=== PATIENT | male | born 1960 | race Caucasian/White ===

== ENCOUNTER 2017-04-06 17:35 | Inpatient (IN) | payer SELFPAY ==
[2017-04-06] MEDS ORDERED: NS 1,000 ML IV SCH (19:30)
[2017-04-06] MEDS ORDERED: ONDANSETRON 4 MG/2 ML VIAL IVP PRN (21:03)
--- NOTE | 2017-04-06 21:31 | GHP ---
[f rep st] HISTORY AND PHYSICAL DATE OF ADMISSION: 04/06/2017 CHIEF COMPLAINT: Jaundice. HISTORY OF PRESENT ILLNESS: The patient is a pleasant 56-year-old gentleman, with no major past medi kezia history other than testicular cancer diagnosed in the , who presented to medical attention a fter noting dark urine and abiodun-colored stools. Blood work done by his primary care provider, Dr. Hima Marquis, revealed an elevated bilirubin at 13, which was mostly conjugated. This led to right upper quadrant ultrasound, which showed marked dilatation of the intra and extrahepatic biliary duct al system with the common bile duct measuring 21 mm. There was also echogenic shadowing filling defe cts within the visualized portions of the common bile duct, consistent with choledocholithiasis. The patient has been afebrile. His white blood cell count is normal. He is not having severe pain or f eleni. There was no gallbladder wall thickening either. I reviewed the case with Dr. Dickey and shailesh garcía plan is for ERCP tomorrow morning to address the choledocholithiasis. PAST MEDICAL HISTORY: Testicular cancer, status post chemotherapy and lymph node dissection in his a bdomen and pelvis. PAST SURGICAL HISTORY: Removal of left testicle. MEDICATIONS: None. ALLERGIES: None. FAMILY HISTORY: Dad is . He from lung cancer. Mother is currently living and lives in [place]. SOCIAL HISTORY: Patient is single. No children. He is a nonsmoker. He is a software engineering associate manager. REVIEW OF SYSTEMS: CONSTITUTIONAL: No complaints of any fevers or chills. ENT: No recent upper re spiratory illnesses. CARDIOVASCULAR: No complaints of any chest pain, palpitations, or syncopal epi sodes. RESPIRATORY: No complaints of shortness of breath or productive cough. GI: He notes some ab dominal discomfort over the past months with eating, but no nausea or vomiting associated. He has mendoza d some loose stools and had abiodun-colored stools over the past 4-6 weeks. No bloody stools. : No report of any difficulty with urination. He has noted dark urine over the past 4-6 weeks as well. N EUROLOGIC: No complaints of headaches or focal weakness. HEMATOLOGIC: No history of any deep vein thrombosis or pulmonary embolism. PSYCHIATRIC: No history of anxiety or depression. ENDOCRINE: No history of diabetes or thyroid abnormalities. SKIN: Positive for jaundiced appearing over the past weeks. MUSCULOSKELETAL: No focal joint pain. PHYSICAL EXAM: VITAL SIGNS: Temperature 37.1, blood pressure 142/75, heart rate 66, respirations 16 , saturating 96% on room air. GENERAL: Patient appears comfortable. He is awake, alert, conversant , able to provide a good history. HEENT: Extraocular movements intact. Positive for scleral icteru s. Mucous membranes moist. NECK: Supple. No adenopathy. No thyroid enlargement noted. CHEST: C lear. Normal respiratory effort. HEART: Regular rate and rhythm. No murmurs. ABDOMEN: Midline s car from prior surgery. Nondistended, nontender. No right upper quadrant discomfort noted. Normal bowel sounds. : No Valles catheter in place. EXTREMITIES: No significant pitting edema. NEUROLO GIC: Cranial nerves 2-12 appear intact. Strength 5/5 in all extremities. LABORATORY DATA: White blood cell count 5, hemoglobin 15, platelets 186. Sodium 143, potassium 4.0, chloride 108, bicarb 20, BUN 18, creatinine 0.9, glucose 95. AST 62, ALT 97, alkaline phosphatase 3 40. Bilirubin total 13, conjugated bilirubin 11, unconjugated bilirubin 2. Hepatitis A, B, and C te sting negative. IMAGING: Ultrasound as detailed in the HPI. ASSESSMENT AND PLAN: 1. Choledocholithiasis. Dr. Dickey has been consulted and tentative plan is for ERCP tomorrow morning . There are no signs or symptoms to suggest cholangitis at this point in time. Monitor closely and if so, initiate empiric antibiotic therapy. Otherwise, we will plan on repeat labs in the morning. Patient will remain n.p.o. Overnight. 2. Deep vein thrombosis prophylaxis. We will hold Lovenox for now in anticipation of ERCP. Patient is low risk as he is ambulatory. 3. Disposition. I will admit him under inpatient as I anticipate him being here over 2 midnights, p robably 3-4 days. /[id number]/MODL
--- NOTE | 2017-04-06 21:45 | PDMN ---
Medical Necessity Medical necessity: C/M review: Patient meets INPT criteria under [facility] [place]\ M-[id number] Gallbladder or bile duct inflammation or stone: Acute and persistent choledocholithiasis,marked dilatation of the intra and extra hepatic biliary ductal system with the common bile duct measuring 21 mm, echogenic shadowing filling defects within the visualized portions of the common bile duct concictent with choledocholithiasis, jaundice, abiodun colored stools, bilirubin 13 requiring planned GI consult, 04/07/2017 ERCP, ongoing NPO, IV fluids, IV Morphine and IV Zofran as needed, comorbid history of testicular cancer S/P chemotherapy and lymph node dissection in the abdomen and pelvis. MD anticipates > 2 MN LOS for ongoing med nec for eval and TX of above.
[2017-04-06 22:50] LABS: PLATELET COUNT 155 10^3/uL (150-400)
[2017-04-06 22:59] LABS: INR 1.07 (0.83-1.16); PROTIME(PATIENT) 14.1 SEC (12.0-15.0)
[2017-04-07 05:11] LABS: PLATELET COUNT 144 10^3/uL (150-400)
[2017-04-07 05:20] LABS: INR 1.03 (0.83-1.16); PROTIME(PATIENT) 13.7 SEC (12.0-15.0)
--- NOTE | 2017-04-07 10:28 | ASMTCASEMG ---
Living Arrangements What is your living Answers: Alone arrangement? Who do you live with? Discharge Plan Comments Coordination Status Comments Notes: Pt admitted for suspected choledocholithiasis; scheduled for an ERCP today. Only significant history includes testicular cancer in the w/ chemo and lymph node dissection. Per H&P, pt is single, lives alone and has no children. 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 Spoke w/ Mandy Morales NP. Per Mandy, pt will likely discharge home independently when medically stable. CM will cont to follow for any potential needs or concerns. Current Discharge Plan: Home independently Date Signed: 04/07/2017 10:27 AM Electronically Signed By:Brooke Jimenez RN
--- NOTE | 2017-04-07 10:57 | HOSPPROG ---
Hospitalist Progress Note Assessment/Plan: 56y male with jaundice and elevated labs. First encounter, chart reviewed. #Choledocholithiasis -ERCP today #Pain -none #Routine -educated about colonoscopy #Dispo -cont hospital course -likely DC in am if feeling better and no complications. Subjective: No pain. Anxious for procedure. Objective: Vital Signs Temp Pulse Resp BP Pulse Ox 36.7 C 53 L 16 109/64 97 04/07/17 07:25 04/07/17 07:25 04/07/17 07:25 04/07/17 07:25 04/07/17 07:25 Laboratory Results 04/07/17 05:00 04/07/17 05:00 PT 13.7 SEC (12.0-15.0) 04/07/17 05:00 INR 1.03 (0.83-1.16) 04/07/17 05:00 - Physical Exam Constitutional: no apparent distress, appears nourished, not in pain Eyes: PERRL, EOMI, icteric sclera Ears, Nose, Mouth, Throat: moist mucous membranes, hearing normal, ears appear normal Cardiovascular: No JVD, No tachycardia, No edema Respiratory: no respiratory distress, no rales or rhonchi, reduced air movement Gastrointestinal: normoactive bowel sounds, tenderness, No ascites Skin: warm, normal color, No mottled Musculoskeletal: full muscle strength, normal joint ROM, no joint effusions Neurologic: AAOx3 Psychiatric: interacting appropriately, not encephalopathic, thought process linear, anxious ICD10 Worksheet Patient Problems: Problems Problem Status Onset Choledocholithiasis Acute - ICD10 Problem Qualifiers (1) Choledocholithiasis
[2017-04-07] MEDS ORDERED: GLUCAGON HCL 1 MG VIAL ONE (13:03)
[2017-04-07] MEDS ORDERED: IOTHALAMATE MEG (CONRAY) 50 ML VIAL IV ONE (13:31)
--- NOTE | 2017-04-07 14:21 | PDANEPAE ---
ANE History of Present Illness 56 yo for ercp ANE Past Medical History - Pulmonary History Hx Oxygen in Use at Home: No Hx Sleep Apnea: No Sleep Apnea Screening Result - Last Documented: Negative - Endocrine History Hx Diabetes: No - Chronic Pain History Chronic Pain: No ANE Review of Systems Review of Systems: - Exercise capacity METS (RN): 4 METS ANE Patient History - Allergies Allergies/Adverse Reactions: No Known Allergies Allergy (Unverified 04/06/17 20:11) - Home Medications Home medications: home medication list seen and reviewed Home Medications: NK [No Known Home Meds] 04/06/17 [Last Taken Unknown] - NPO status NPO Status: no food or drink >8 hours NPO Since - Liquids (Date): 04/07/17 NPO Since - Liquids (Time): 00:00 NPO Since - Solids (Date): 04/07/17 NPO Since - Solids (Time): 00:00 - Anes Hx Anes Hx: post operative nausea - Smoking Hx Smoking Status: Never smoked ANE Labs/Vital Signs - Labs Result Diagrams: 04/07/17 05:00 04/07/17 05:00 - Vital Signs Blood Pressure: 124/71 Heart Rate: 56 Respiratory Rate: 16 O2 Sat (%): 97 Height: 5 ft 8 in Weight: 79.5 kg ANE Physical Exam - Airway Mallampati Score: Class 2 Mouth exam: normal dental/mouth exam - Pulmonary Pulmonary: no respiratory distress - Cardiovascular Cardiovascular: regular rate and rhythym - ASA Status ASA Status: II ANE Anesthesia Plan Anesthesia Plan: general endotracheal anesthesia
[2017-04-07] MEDS ORDERED: REMIFENTANIL HCL 1 MG VIAL ONE (14:35)
[2017-04-07] MEDS ORDERED: fentaNYL 100 MCG/2 ML INJ ONE (14:35)
[2017-04-07] MEDS ORDERED: PROPOFOL/EMULSION 500 MG/50 ML BOTTLE IV ONE (14:35)
[2017-04-07] MEDS ORDERED: INDOMETHACIN 50 MG SUPP PR ONE ×2 (14:41→14:55)
[2017-04-07] MEDS ORDERED: NALOXONE HCL 0.4 MG/ML INJ IVP PRN (16:02)
[2017-04-07] MEDS ORDERED: fentaNYL 100 MCG/2 ML INJ IVP PRN (16:02)
[2017-04-07] MEDS ORDERED: ONDANSETRON 4 MG/2 ML VIAL IVP PRN (16:02)
--- NOTE | 2017-04-07 16:03 | POSTANESTH ---
Post Anesthetic Evaluation Cardiovascular Status: Normal, Stable Respiratory Status: Normal, Stable Level of Consciousness/Mental Status: Can Participate in Eval Pain Control: Adequate, Prn Tx Ordered Nausea/Vomiting Control: Adequate, Prn Tx Ordered Complications Possibly Related to Anesthesia: None Noted
[2017-04-07 16:51] VITALS: RESP 16
[2017-04-07 20:13] VITALS: TEMP 97.9; O2SAT 96
--- NOTE | 2017-04-07 22:14 | GIREPORT ---
[facility] - Endoscopy Department Patient Name: Kishor Ruiz Procedure Date: 04/07/2017 1:28 PM Patient Type: Inpatient Attending MD/ ER Physician: Mu Dickey MD Procedure: ERCP Indications: Abdominal pain of suspected biliary origin, Biliary dilation on Ultraso und, Bile duct stone on Ultrasound, Jaundice, Elevated alkaline phosphatase Patient Profile: 56 year old male presents for biliary decompression. Providers: Mu Dickey MD Medicines: Indomethacin 100 mg [place], General Anesthesia Complications: No immediate complications. Estimated blood loss: Minimal. Description of Procedure: After obtaining informed consent, the scope was passed under direct vis ion. Throughout the procedure, the patient's blood pressure, pulse, and oxyg en saturations were monitored continuously. The was introduced through the mouth, and advanced to the duodenum and used to inject contrast into th e bile duct. The ERCP was accomplished without difficulty. The patient tolerated the procedure well. Findings: The icing machine operator film was normal. The esophagus was successfully intubated und er direct vision. The scope was advanced to the major papilla in the desce nding duodenum without detailed examination of the pharynx, larynx and associ ated structures, and upper GI tract. The ampulla was bulging. The upper GI t ract was grossly normal. A wire was passed into the biliary tree. The short- nosed traction sphincterotome was passed over the guidewire and the bile duct was then deeply cannulated. No pancreatic duct manipulation or injection wa s performed. Contrast was injected. I personally interpreted the bile deepak t images. Ductal flow of contrast was adequate. Image quality was subopti mal due to signiciant dilation of the CBD. The CBD was dilated to at least 2cms and even with occlusion cholangiogram the duct was hard to visualize du e to the dilation of the CBD. Contrast extended to the entire biliary tree. The lower third of the main bile duct contained five stones, the largest of which was 15 mm in diameter. A 15 mm biliary sphincterotomy was made wi th a traction (standard) sphincterotome using pure cut current. The sphincterotomy oozed blood. Balloon sweeps was attempted but the stones could not be extracted. Dilation of the common bile duct with a 12-13.5 -15 mm balloon (to a maximum balloon size of 15 mm) dilator was successful. The biliary tree was swept with a 15 mm balloon starting at the bifurcation . Many stones were removed. However, despite multiple balloon sweeps significant debris and stones were still being extracted. Due to this, a 10 mm by 6 cm covered metal stent was placed into the common bile duct. Bi le flowed through the stent. The stent was in good position. Estimated Blood Loss: Estimated blood loss was minimal. Post Op Diagnosis: - Choledocholithiasis was found. - A biliary sphincterotomy was performed. - Common bile duct was successfully dilated. - The biliary tree was swept with stone extraction and debris despite multiple balloon sweeps. - One covered metal stent was placed into the common bile duct. Recommendation: - [facility] patient to [facility] for [facility] care. - NPO. - Continue previous medications. - Repeat ERCP in 3-4 weeks. - Recommend surgical consultation. - Thank you for allowing me to participate in the care of your patient. Attending Participation: I personally performed the entire procedure. Mu Dickey MD Mu Dickey MD 04/07/2017 10:13:12 PM This report has been signed electronicallyMu Dickey MD Number of Addenda: 0 Note Initiated On: 04/07/2017 1:28 PM [email or web address]
[2017-04-08 05:33] LABS: PLATELET COUNT 146 10^3/uL (150-400)
[2017-04-08 07:28] VITALS: BP 110/60; PULSE 54
--- NOTE | 2017-04-08 11:22 | GCON ---
[f rep st] CONSULTATION DATE OF CONSULTATION: 04/07/2017 CONSULTING PHYSICIAN: Will Chang MD REASON FOR CONSULTATION: Jaundice. CHIEF COMPLAINT: Jaundice. HISTORY OF PRESENT ILLNESS: The patient is a 56-year-old male with a history of testicular cancer who presented to [facility] with complaints of abdominal pain as well as jaundice. The patient states he was doing well until approximately 2 months ago when he started to experience a pain in his midepigastrium area. The pain was sharp and constant. He experienced the pain when driving from [place] on vacation back to [place]. The pain dissipated within 48 hours and he states since last week he has noticed that his eyes have been yellow. He has also noted that his stools have been abiodun-colored. He has lost some weight. He denies any exacerbating or alleviating factors to his symptoms. The patient denies any significant abdominal pain at this time. He denies any fevers or chills. He has not had a prior colonoscopic evaluation. I am being asked by Dr. Chang to evaluate Kishor in consultation regarding his biliary obstruction/jaundice. PAST MEDICAL HISTORY: Testicular cancer. PAST SURGICAL HISTORY: Removal of left testicle and lymph node dissection. MEDICATIONS: None. ALLERGIES: None. FAMILY HISTORY: No history of colon cancer or colon polyps. SOCIAL HISTORY: Single. Denies any alcohol or tobacco use. REVIEW OF SYSTEMS: A 14-point comprehensive review of systems was asked. Pertinent positives per HPI. PHYSICAL EXAMINATION: VITAL SIGNS: Temperature 36.9, blood pressure 124/71, pulse 56, respiration 16. GENERAL: Awake, alert, oriented x3. No distress. HEENT: Icteric sclerae. NECK: No JVD. CARDIOVASCULAR: Regular rate and rhythm. Positive S1, S2. No murmur is appreciated. LUNGS: Clear to auscultation bilaterally without rales, wheezes, rhonchi. ABDOMEN: Soft, nontender, nondistended. Positive bowel sounds. No guarding or rebound. EXTREMITIES: NO clubbing, cyanosis, or edema. NEUROLOGIC: 2 through 12 grossly intact. PSYCH: Normal affect. SKIN: Icteric. LYMPH: No lymphadenopathy. MUSCULOSKELETAL: No obvious effusions. BLOOD WORK: WBC is 5.5, hemoglobin 13.4, hematocrit 38.3, platelets 144. INR 1.03. Sodium 143, potassium 4.2, chloride 110, bicarb 21, BUN 15, creatinine 0.8, Bilirubin 11.8, AST 46, ALT 83, alkaline phosphatase 302. INR 1.03. He had a right upper quadrant ultrasound which shows a dilated common bile duct of 21 mm. There are multiple filling defects. This report is not available currently for review. ASSESSMENT AND PLAN: 1. Increased liver function tests- jaundice with imaging revealing choledocholithiasis. He did have prior abdominal pain. At this time, I recommend to proceed with endoscopic retrograde cholangiopancreatography for further evaluation and biliary decompression. The risks, benefits, and alternatives of the procedure were discussed in great detail with the patient. The risk of infection, bleeding, perforation, sedation, and pancreatitis were discussed. All questions answered and informed consent was obtained. 2. > 50 years of age- recommend screening colonoscopy as outpatient. 3. History of testicular cancer. Thank you very much for this consultation. /[id number]/MODL MTDD
--- NOTE | 2017-04-08 12:12 | GCON ---
[f rep st] CONSULTATION DATE OF CONSULTATION: 04/08/2017 CHIEF COMPLAINT: Choledocholithiasis. HISTORY OF PRESENT ILLNESS: The patient is a 56-year-old man who presented to the hospital on 2017 with choledocholithiasis. He had an ERCP performed on April 07 and stent placement. His bilirubin has remained elevated. I was consulted to discuss cholecystectomy. The patient is fee ling much better than arrival. He still has dark urine. He does not have pruritus. PAST MEDICAL HISTORY: Testicular cancer status post chemotherapy and lymph node dissection. PAST SURGICAL HISTORY: Left orchiectomy and lymph node dissection. MEDICATIONS: None. ALLERGIES: None. FAMILY HISTORY: Father from lung cancer. Mother is alive. SOCIAL HISTORY: Single. 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 REVIEW OF SYSTEMS: A 10-point review of systems negative except per HPI. PHYSICAL EXAM: VITAL SIGNS: Vitals reviewed. GENERAL: Pleasant, well-nourished, sitting up in bed . HEENT: Normocephalic. He does have scleral icterus. No gross hearing deficits. Mucous membrane s moist. Pupils equal and round. LUNGS: Clear to auscultation bilaterally. No increased work of b reathing. CARDIAC: Regular rate. ABDOMEN: Bowel sounds present. He is soft. He is slightly dist ended. He is nontender. He has a very large midline incision. EXTREMITIES: Normal nails. SKIN: Warm and dry. PSYCH: Mood and affect normal. I personally reviewed the results of his ERCP report and discussed the case with Dr. Dickey. I reviewe d the results of his laboratory work. Discussed the case that cholecystectomy is indicated. We disc ussed the risks and benefits, including, but not limited to, stroke, heart attack, , blood clots , infection, bleeding, damage to surrounding structures. He would like to avoid lap choly at this po int, because he does not have health insurance. He does think that he will be getting it in the futu re. He also understands he does need to have the stent removed in about 6 weeks. We discussed surgi kezia timing, and that usually laparoscopic cholecystectomy is performed within 2 weeks after a complic ated hospital admission. I gave him my business card and he will call me. /[id number]/MODL
--- NOTE | 2017-04-08 12:57 | GDS ---
[f rep st] DISCHARGE SUMMARY DISCHARGE DIAGNOSES: 1. Choledocholithiasis. 2. Jaundice. 3. Pain. CONSULTATIONS: Gastroenterology. STUDIES AND PROCEDURES DONE: ERCP. PHYSICAL EXAM: GENERAL: The patient is alert. VITAL SIGNS: Afebrile at 36.6, pulse is 54, respira tory rate 16, blood pressure is 110/60, saturating 96% on room air. I have seen evaluated the argelia acharya on the day of discharge. HOSPITAL COURSE: The patient is a 56-year-old male who presented to the emergency room after being n oted to have jaundice by his primary care physician. He was evaluated during this hospitalization an d diagnosed with choledocholithiasis. He received a consultation from Gastroenterology with an ERCP being performed. Please refer to report for specific details. The patient had multiple stones as we ll as a sphincterotomy performed and stent placement in the common bile duct. His symptoms are signi ficantly improved. He is tolerating a regular diet. His laboratory evaluation is improving and he i s eager to be discharged home. He did receive a consultation from Dr. Anand of general surgery [facility] this hospital course. It is recommended that he have a cholecystectomy in the future and he will f ollow up with her in the outpatient setting. DISCHARGE MEDICATIONS: Please refer to EMR form. I have not provided any prescriptions for the kina ent at the time of disposition. FOLLOW UP: Followup will be with Dr. Anadn to further discuss possible cholecystectomy as well as re peat ERCP in 3-[address] Diceky of gastroenterology. I have also instructed the patient to sche dule a colonoscopy as he has not ever had a routine colonoscopy performed. Further care will be marj white by his primary care physician. He will make an appointment to see her this week to continue to m onitor his abnormal laboratory evaluations until they resolve. TIME SPENT: I spent greater than 35 minutes in the care, coordination, and management of this argelia acharya's disposition. /[id number]/MODL
--- NOTE | 2017-04-08 13:56 | ASDISCHSUM ---
Discharge Information Plan Status:Home with No Needs Medically Cleared to Leave:04/07/2017 Discharge Date:04/08/2017 10:16 AM CM D/C Disposition:Home, Routine, Self-Care ADT D/C Disposition:Home, Routine, Self-Care Projected Discharge Date:04/08/2017 10:16 AM Transportation at D/C:Family Discharge Delay Reason: Follow-Up Date:04/08/2017 10:16 AM Discharge Slot:1 - 8:01 am - 12:00 noon Final Diagnosis:Jaundice, choledocholithiasis, pain Placement Information Patient Contact Information Contact Name:TAVOARIAS Relationship:Friend Address:[address] [place] [address] City:[place] Alternate Phone: [facility]/Zip Code:[place] [address] Email: Financial Information Financial Class:Self-Pay Primary Plan Desc:SELF PAY Primary Plan Number: Secondary Plan Desc: Secondary Plan Number: Assessment Information [facility] Initial CM Assessment Living Arrangements What is your living Answers: Alone arrangement? Who do you live with? Discharge Plan Comments Coordination Status Comments Notes: Pt admitted for suspected choledocholithiasis; scheduled for an ERCP today. Only significant history includes testicular cancer in the w/ chemo and lymph node dissection. Per H&P, pt is single, lives alone and has no children. He is a staff software engineer. Pt's mother lives in [place]. Spoke w/ Mandy Morales NP. Per Mandy, pt will likely discharge home independently when medically stable. CM will cont to follow for any potential needs or concerns. Current Discharge Plan: Home independently Date Signed: 04/07/2017 10:27 AM Electronically Signed By:Brooke Jimenez RN Case Management Discharge Plan Note Case Management Discharge Discharge Order Complete? Answers: Yes Patient to Obtain Answers: Independently Medications Transportation Arranged Answers: Family/Friends Transport will Pick (Date 04/08/2017 12:00 AM & Time) KENYA Complete Answers: No Notes: N/A Case Management Transport Answers: No Notes: N/A Form Complete Faxed Final Orders Answers: No Notes: N/A Agency/Facility Transfer Answers: No Notes: N/A Report Printed & Faxed to Receiving Agency Family Notified Answers: No Notes: Pt to notify Discharge Comments Notes: Reviewed chart regarding discharge plan of care, pt's progress. Spoke w/ Mandy Morales CHUTE BOSS, pt to discharge home independently today w/ no identified needs. No IM signed, not applicable. Pt to follow up as directed. CM available for any further issues or concerns. Discharge Plan: Home independently Date Signed: 04/08/2017 01:52 PM Electronically Signed By:Brooke Jimenez RN LACE LACE Length of stay for Answers: 1 day current admission Acuity / Level of Answers: Yes Care: Did the patient have an inpatient admission? Comorbidities - select Answers: Other Notes: Testicular cancer all that apply # of Emergency department Answers: 0 visits in the last 6 months Score: 5 Date Signed: 04/08/2017 01:55 PM Electronically Signed By:Brooke Jimenez RN Intervention Information
== END 2017-04-08 10:16 | disposition home or self-care (01) | DRG 445 ==
LOC: F3E 18:33
PROVIDERS: ADMIT Internal Medicine; ATTEND Hospitalist
PROC: BF111ZZ Fluoroscopy of Biliary and Pancreatic Ducts using Low Osmolar Contrast (ICD-10-PCS; 2017-04-07)
PROC: 0FHB8DZ Insertion of Intraluminal Device into Hepatobiliary Duct, Via Natural or Artificial Opening Endoscopic (ICD-10-PCS; principal; 2017-04-07 14:30)
PROC: 0FC98ZZ Extirpation of Matter from Common Bile Duct, Via Natural or Artificial Opening Endoscopic (ICD-10-PCS; principal; 2017-04-07 14:30)
DX: K80.50 Calculus of bile duct without cholangitis or cholecystitis without obstruction (principal); R17 Unspecified jaundice; Z85.47 Personal history of malignant neoplasm of testis
CPT/HCPCS: C1726; C1874; J1610; J2704; J3010; Q9961

== ENCOUNTER 2017-04-26 13:11 | Inpatient (IN) | payer SELFPAY ==
--- NOTE | 2017-04-26 13:52 | EDPHY ---
H & P Stated Complaint: itching and RUQ abd pain Time Seen by Provider: 04/26/17 13:38 - Personal History Current Tetanus/Diphtheria Vaccine: Unsure Current Tetanus Diphtheria and Acellular Pertussis (TDAP): Unsure - Medical/Surgical History Hx Asthma: No Hx Chronic Respiratory Disease: No Hx Diabetes: No Hx Cardiac Disease: No Hx Renal Disease: No Hx Cirrhosis: No Hx Alcoholism: No Hx HIV/AIDS: No Hx Splenectomy or Spleen Trauma: No Other PMH: gall stones, testicular CA, R knee repair, - Social History Smoking Status: Never smoked Constitutional: Initial Vital Signs Temperature (C) 36.5 C 04/26/17 13:14 Heart Rate 67 04/26/17 13:14 Respiratory Rate 16 04/26/17 13:14 Blood Pressure 129/76 H 04/26/17 13:14 O2 Sat (%) 98 04/26/17 13:14 O2 Delivery Mode Room Air Allergies/Adverse Reactions: No Known Allergies Allergy (Unverified 04/26/17 13:13) Home Medications: Medication Instructions Recorded NK [No Known Home Meds] 04/06/17 Medical Decision Making - Diagnostics Imaging Results: Imaging Impressions Abdomen CT 04/26/17 13:54 Impression: 1. Nondilated gallbladder with cholelithiasis with thickened gallbladder wall. Tiny lucency within the cystic duct could represent pneumobilia or noncalcified stone. 2. Extra hepatic biliary stent placement, appears patent. No pancreatic ductal dilatation 3. Postsurgical changes consistent with orchiectomy and retroperitoneal lymph node dissection. No evidence of recurrent malignancy or pathologic adenopathy. 4. Incidentally noted 3 mm soft tissue nodule within the left lower lobe. If prior imaging is available, recommend comparison. Otherwise, recommend follow- up CT within 6 months given prior history of malignancy. Findings and recommendations discussed with Dylan Rolle MD at 1513 hour, . Imaging: Discussed imaging studies w/ manager call Radiologist, I viewed and interpreted images myself ED Course/Re-evaluation: Gallbladder removal jaundice not improving sludge and stones in gallbladder, stented duct, causing back up of bile choledocolethiasis cholelethyiasis itching of skin from bile build up in skin ulstrasound of abdomen, stent in for dilated bile duct CHIEF COMPLAINT: Gallbladder stones and sludge HISTORY OF PRESENT ILLNESS: The patient is a 56 y/o male with a history of a stented common bile duct complaining of jaundice and gallbladder stones and sludge. He had an ultrasound that showed sludge and stones from the gallbladder in the common bile duct. He has been jaundice for several weeks and has associated itchiness. He denies any other associated symptoms. REVIEW OF SYSTEMS: A 10 point review of systems was performed and is negative with the exception of the elements mentioned in the history of present illness. PHYSICAL EXAM: HR, BP, O2 Sat, RR. Temp noted General Appearance: Alert, well hydrated, appropriate, jaundice and cachectic in appearance. Head: Atraumatic without scalp tenderness or obvious injury Eyes: Pupils equal, round, reactive to light and accommodation, EOMI, no trauma , no injection. Ears: Clear bilaterally, no perforation, normal landmarks Nose: Atraumatic, no rhinorrhea, clear. Throat: There is no erythema or exudates, no lesions, normal tonsils, mucus membranes moist. Neck: Supple, nontender, no lymphadenopathy. Respiratory: No retractions, no distress, no wheezes, and no accessory muscle use. Lungs are clear to auscultation bilaterally. Cardiovascular: Regular rate and rhythm, no murmurs, rubs, or gallops. Good capillary refill all extremities. Gastrointestinal: Abdomen is soft, nontender, non-distended, no masses, no rebound, no guarding, no peritoneal signs. Musculoskeletal: Normal active ROM of all extremities, atraumatic. Neurological: Alert, appropriate, and interactive. The patient has normal DTRs and non-focal cranial nerves, motor, sensory, and cerebellar exam. Skin: Jaundice. No rashes, good turgor, no nodules on palpation. Past medical history: Gallstones Past surgical history: Common bile duct stent Family history: Non-contributory Social history: at bedside, lives in [facility] DIFFERENTIAL DIAGNOSIS: The differential diagnosis for this patient's symptoms include but are not limited to gallstones causing block of common bile duct, gallbladder inflammation, liver failure, and pancreatic cancer. MEDICAL DECISION MAKING: The patient presents with several weeks of jaundice and an ultrasound indicating gallstones. He has previously had his common bile duct stented. He has associated itchiness from jaundice. Since his common bile duct is stented, I would like to investigate other possible causes for his jaundice. Plan for abdominal CT, CBC, Chem7, Coag, liver function, and lipase labs. 1500- Labs indicate elevated bilirubin at 11 and other elevated liver enzymes. 1513- I spoke with Dr. Trujillo, radiology, regarding this patient's CT. CT does not indicate pancreatic cancer or other tumors. The gallbladder is inflamed but the stent and duct are open. It is not clear why his bilirubin is still elevated. I consulted with Dr. Dickey, gastroenterology, and Dr. Morse, general surgery, regarding this patient. While the gallbladder should be removed , I am not sure that the gallbladder will solve his hyperbilirubinemia. Dr. Morse met with the patient regarding surgery. The patient declined admission for surgery as he is uninsured and was concerned about the cost. At this point, the patient requested to leave and pursue the cholecystectomy as an out patient. He called his PCP, Dr. Molina, who advised him to have the surgery here as an inpatient as he was unlikely to find an outpatient provider due to his insurance status. At this point he decided to return and have his cholecystectomy. Dr. Morse will be performing the surgery and Dr. Dickey will be performing an endoscopy to identify other possible causes of hyperbilirubinemia. The patient agrees to this course of action. - Data Points Laboratory Results: Laboratory Results 04/26/17 14:04 04/26/17 14:04 04/26/17 04/26/17 04/26/17 14:04 14:04 14:04 WBC 5.59 10^3/uL 10^3/uL (3.80-9.50) RBC 4.46 10^6/uL 10^6/uL (4.40-6.38) Hgb 13.8 g/dL g/dL (13.7-17.5) Hct 39.5 % L % (40.0-51.0) MCV 88.6 fL fL (81.5-99.8) MCH 30.9 pg pg (27.9-34.1) MCHC 34.9 g/dL g/dL (32.4-36.7) RDW 17.6 % H % (11.5-15.2) Plt Count 179 10^3/uL 10^3/uL (150-400) MPV 13.0 fL H fL (8.7-11.7) Neut % (Auto) 63.8 % % (39.3-74.2) Lymph % (Auto) 20.6 % % (15.0-45.0) [place] % (Auto) 12.5 % % (4.5-13.0) Eos % (Auto) 1.6 % % (0.6-7.6) Baso % (Auto) 1.1 % % (0.3-1.7) Nucleat RBC Rel Count 0.0 % % (0.0-0.2) Absolute Neuts (auto) 3.57 10^3/uL 10^3/uL (1.70-6.50) Absolute Lymphs (auto) 1.15 10^3/uL 10^3/uL (1.00-3.00) Absolute Monos (auto) 0.70 10^3/uL 10^3/uL (0.30-0.80) Absolute Eos (auto) 0.09 10^3/uL 10^3/uL (0.03-0.40) Absolute Basos (auto) 0.06 10^3/uL 10^3/uL (0.02-0.10) Absolute Nucleated RBC 0.00 10^3/uL 10^3/uL (0-0.01) Immature Gran % 0.4 % % (0.0-1.1) Immature Gran # 0.02 10^3/uL 10^3/uL (0.00-0.10) PT 13.8 SEC SEC (12.0-15.0) INR 1.04 (0.83-1.16) APTT 31.3 SEC SEC (23.0-38.0) Sodium 140 mEq/L mEq/L (135-145) Potassium 4.0 mEq/L mEq/L (3.5-5.2) Chloride 105 mEq/L mEq/L (97-110) Carbon Dioxide 24 mEq/l mEq/l (22-31) Anion Gap 11 mEq/L mEq/L (8-16) BUN 17 mg/dL mg/dL (7-23) Creatinine 0.8 mg/dL mg/dL (0.7-1.3) Estimated GFR > 60 Glucose 88 mg/dL mg/dL (70-100) Calcium 9.2 mg/dL mg/dL (8.5-10.4) Total Bilirubin 11.1 mg/dL H mg/dL (0.1-1.4) Conjugated Bilirubin 9.1 mg/dL H mg/dL (0.0-0.5) Unconjugated Bilirubin 2.0 mg/dL H mg/dL (0.0-1.1) AST 82 IU/L H IU/L (17-59) ALT 100 IU/L H IU/L (21-72) Alkaline Phosphatase 267 IU/L H IU/L (38-126) Total Protein 6.5 g/dL g/dL (6.3-8.2) Albumin 3.6 g/dL g/dL (3.5-5.0) Lipase 124 IU/L IU/L (23-300) Medications Given: Discontinued Medications Sodium Chloride (Ns) 1,000 mls @ 0 mls/hr IV EDNOW ONE; Wide Open PRN Reason: Protocol Stop: 04/26/17 13:54 Last Admin: 04/26/17 14:05 Dose: 1,000 mls Sodium Chloride (Ns) 1,000 mls @ 0 mls/hr IV EDNOW ONE; Wide Open PRN Reason: Protocol Stop: 04/26/17 13:54 Last Admin: 04/26/17 14:05 Dose: 1,000 mls Departure - Departure Disposition: [facility] [place] Inpatient Acute Clinical Impression: Choledocholithiasis Choledocholithiasis with obstruction Qualifiers: Cholangitis presence: without cholangitis Qualified Code(s): K80.51 - Calculus of bile duct without cholangitis or cholecystitis with obstruction Cholelithiasis Qualifiers: Cholelithiasis location: gallbladder and bile duct Cholecystitis presence: with cholecystitis Cholecystitis acuity: chronic Biliary obstruction: with biliary obstruction Qualified Code(s): K80.65 - Calculus of gallbladder and bile duct with chronic cholecystitis with obstruction Condition: Fair Referrals: LUIS ALBERTO MOLINA MD [Primary Care Provider] - As per Instructions Mu Dickey MD [Medical Doctor] - As per Instructions Report Scribed for: Dylan Rolle Report Scribed by: Arabella Kinney Date of Report: 04/26/17 Time of Report: 17:20
[2017-04-26] MEDS ORDERED: NS 1,000 ML IV ONE ×2 (13:53)
[2017-04-26 14:18] LABS: PLATELET COUNT 179 10^3/uL (150-400)
[2017-04-26 14:25] LABS: INR 1.04 (0.83-1.16); PROTIME(PATIENT) 13.8 SEC (12.0-15.0)
[2017-04-26] MEDS ORDERED: IOPAMIDOL (ISOVUE-300) 100 ML BTL ONE (14:32)
--- NOTE | 2017-04-26 17:12 | GHP ---
[f rep st] HISTORY AND PHYSICAL DATE OF ADMISSION: 04/26/2017 CHIEF COMPLAINT: Itching. PRESENT ILLNESS: Patient is a 56-year-old male who had an admission to [facility] ap proximately 3 weeks ago for jaundice. Gallstones were identified. He underwent an ERCP with stent p lacement and multiple stones were extracted from the common duct. He returns today because his itchi ng has not improved. His bilirubin is currently 11; there was a high of at least 14, but one would h ave expected over 3 weeks for a better resolution of his hyperbilirubinemia. The patient currently denies abdominal pain, fevers, chills. States he is eating without any issues but really wanted attention because of his ongoing itching and jaundice. ALLERGIES: None. CURRENT MEDICATIONS: None. HABITS: Alcohol use, occasional only. Nonsmoker. PAST SURGICAL HISTORY: 1984: Retroperitoneal lymphadenectomy for metastatic testicular cancer, righ t orchiectomy, right ACL, and tonsillectomy. SOCIAL: Patient is single. A web software engineer., REVIEW OF SYSTEMS: He denies asthma, heart trouble, diabetes, epilepsy, and rheumatic fever. PHYSICAL EXAMINATION: CONSTITUTIONAL: Jaundiced male in no distress. HEENT: Pharynx clear. NECK: Supple without adenopathy. LUNGS: Clear. HEART: Normal S1, S2 without murmur. ABDOMEN: Soft, benign, nontender in the right upper quadrant. Healed large midline incision is seen. LABORATORY DATA: Current bilirubin 11, conjugated is 9. Liver enzymes were mildly elevated. Alk ph os is 267. Lipase is normal. White blood count is 5.59 with a hematocrit of 39. ASSESS: The patient has CT scan in the ER which I have personally reviewed. This shows the stent to be in good placement with air in the biliary tree. There is some material in the lumen of the stent consistent with debris, and it might be that the stent is partially obstructed limiting the resoluti on of his hyperbilirubinemia. He has gallstones, and his gallbladder should be removed at his critical access hospital. There is no emergent need at this moment. I discussed with him the option of admitt ing him to the hospital today, likely repeat ERCP tomorrow and cholecystectomy, versus leaving today and scheduling ERCP with Dr. Dikcey who did his previous test and cholecystectomy. I spoke to Dr. Dickey about the case, and he agrees that a repeat ERCP is indicated. After a lengthy discussion, the patient wants to leave the hospital today to schedule this as an outp atient. He at one point talked about trying to arrange [facility] 3 weeks' time and I suggested he not wait 3 weeks as he could become infected and suffer from cholangitis. In summary, a 56-year-old jaundiced male who should have had better resolution of the jaundice with a stent placement, who should have a semi-urgent ERCP and cholecystectomy. The patient has my contact number as well as Dr. Dickey's number. I have personally spoken to Dr. Dickey and Dr. Devora Marquis, his PCP. /[id number]/MODL
[2017-04-27] MEDS: LR 1,000 ML IV SCH ×2 (06:36→18:19)
--- NOTE | 2017-04-27 06:42 | PDMN ---
Medical Necessity Medical necessity: Pt meets INPT criteria per MD and [facility] M-555 Gall Bladder or Bile Duct Inflammation or Stone (current bilirubin 11, jaundice, recent ERCP with stent placement and multiple stone extraction; repeat ERCP and vlad pending).
--- NOTE | 2017-04-27 12:30 | GCON ---
[f rep st] CONSULTATION CHIEF COMPLAINT: A 56-year-old male with jaundice. HISTORY OF PRESENT ILLNESS: I have been asked to see this patient in consultation by Dr. Morse for jaundice and biliary obstruction. Patient presented to [facility] about 3 weeks ago with jaundice. He was found to have gallstones and choledocholithiasis. He underwent ERCP with multiple stones that were extracted from the common bile duct after sphincterotomy. He had an uncovered metal stent placed. He has continued to have elevated bilirubin and itching since the procedure. He denies any fevers, chills, abdominal pain, or discomfort. He presented back to the hospital for further management. I have been asked to see this patient for further evaluation. PAST MEDICAL HISTORY: Negative. PAST SURGICAL HISTORY: Remarkable retroperitoneal lymphadenectomy for metastatic testicular cancer, right orchiectomy, right ACL repair, tonsillectomy and appendectomy. MEDICATIONS PRIOR TO ADMISSION: None. SOCIAL HISTORY: Does drink rare alcohol. Nonsmoker. He is a single parent. full stack engineer. FAMILY HISTORY: Noncontributory as per the chief complaint. ALLERGIES: He has no known drug allergies. REVIEW OF SYSTEMS: Negative 10 systems other than mentioned HPI. PHYSICAL EXAM: VITAL SIGNS: Blood pressure 108/63, heart rate of 51, respiratory rate 18, 97% sat, 36.6 is the temperature. HEENT: Normocephalic, atraumatic. EOMI. NECK: Supple. No cervical adenopathy. Mucous membranes moist. LUNGS: Clear. CARDIAC: Normal S1, S2 without murmur. ABDOMEN: Benign, soft, no hepatosplenomegaly, Nontender. EXTREMITIES: Without clubbing , cyanosis, edema. NEUROLOGIC: Nonfocal. SKIN: Warm, dry, jaundiced. PSYCHIATRIC: Alert oriented x3 with normal affect. LAB: CBC: Hemoglobin 13.8, hematocrit 39.5, platelets 179. PT of 13.8, INR 1.04. Serum chemistries: Sodium 140, potassium 4.0, chloride 109, CO2 24, BUN 17, creatinine 0.8. Liver function tests: Total bilirubin 11, AST of 82, ALT of 100, alkaline phosphatase of 267. Abdominal CT scan shows nondilated gallbladder, cholelithiasis with thickened gallbladder wall, extrahepatic ductal dilatation with stent placement. IMPRESSION: A 56-year-old gentleman with choledocholithiasis, retained stones. RECOMMENDATIONS: Proceed with ERCP, stone removal, stone extraction from the common bile duct. The patient will undergo cholecystectomy at some point after ERCP. Will follow with you. /[id number]/MODL MTDD
[2017-04-27] MEDS ORDERED: LR 1,000 ML IV ONE (13:16)
[2017-04-27] MEDS ORDERED: GLUCAGON HCL 1 MG VIAL ONE (14:11)
[2017-04-27] MEDS ORDERED: IOTHALAMATE MEG (CONRAY) 50 ML VIAL IV ONE (14:11)
[2017-04-27] MEDS ORDERED: INDOMETHACIN 50 MG SUPP PR ONE ×3 (14:17→14:50)
--- NOTE | 2017-04-27 14:22 | PDANEPAE ---
ANE Past Medical History - Pulmonary History Hx Oxygen in Use at Home: No Hx Sleep Apnea: No Sleep Apnea Screening Result - Last Documented: Negative - Endocrine History Hx Diabetes: No - Chronic Pain History Chronic Pain: No ANE Review of Systems Review of Systems: ANE Patient History - Allergies Allergies/Adverse Reactions: No Known Allergies Allergy (Unverified 04/26/17 13:13) - Home Medications Home Medications: Cholecalciferol Vit D3 [Vitamin D3 (*)] 1,000 units PO DAILY 04/26/17 [Last Taken Unknown] - NPO status NPO Since - Liquids (Date): 04/27/17 NPO Since - Liquids (Time): 00:00 NPO Since - Solids (Date): 04/27/17 NPO Since - Solids (Time): 00:00 - Smoking Hx Smoking Status: Never smoked ANE Labs/Vital Signs - Labs Result Diagrams: 04/26/17 14:04 04/26/17 14:04 - Vital Signs Blood Pressure: 108/63 Heart Rate: 51 Respiratory Rate: 18 O2 Sat (%): 97 Height: 172.72 cm Weight: 77.111 kg ANE Physical Exam - Airway Neck exam: FROM Mallampati Score: Class 2 Mouth exam: normal dental/mouth exam - Pulmonary Pulmonary: no respiratory distress - Cardiovascular Cardiovascular: regular rate and rhythym - ASA Status ASA Status: II ANE Anesthesia Plan Anesthesia Plan: general endotracheal anesthesia
[2017-04-27] MEDS ORDERED: fentaNYL 100 MCG/2 ML INJ ONE (14:23)
[2017-04-27] MEDS ORDERED: PROPOFOL 200 MG/20 ML VIAL ONE (14:23)
[2017-04-27] MEDS ORDERED: MIDAZOLAM 2 MG/2 ML VIAL ONE (14:23)
[2017-04-27] MEDS ORDERED: LIDOCAINE 2% 100 MG/5 ML SYR ONE (14:24)
[2017-04-27] MEDS ORDERED: ROCURONIUM 50 MG/5 ML VIAL ONE (14:24)
--- NOTE | 2017-04-27 15:15 | GIREPORT ---
On License Of [facility] Surgical Services - Endoscopy Department Patient Name: Kishor Ruiz Procedure Date: 04/27/2017 2:05 PM Patient Type: Inpatient Attending MD/ ER Physician: Paras Rosa MD Procedure: ERCP Indications: Evaluation and possible treatment of bile duct stone(s), Suspected bile duct stone(s), Jaundice Providers: Paras Rosa MD Medicines: Sedation Required Anesthesia Staff Assistance, Indomethacin 100 mg OH Complications: No immediate complications. Description of Procedure: After obtaining informed consent, the scope was passed under direct vis ion. Throughout the procedure, the patient's blood pressure, pulse, and oxyg en saturations were monitored continuously. The Duodenalscope was introduc ed through the mouth, and advanced to the duodenum and used to inject cont rast into the bile duct. The ERCP was accomplished without difficulty. The patient tolerated the procedure well. Findings: The scope was advanced to a normal major papilla in the descending duod enum. Examination of the pharynx, larynx and associated structures, and upper GI tract was normal. One covered metal stent originating in the biliary tr ee was emerging from the major papilla. The stent was occluded with debris . One stent was removed from the biliary tree using a snare. The bile duct wa s deeply cannulated with the short-nosed traction sphincterotome. Contras t was injected. I personally interpreted the bile duct images. Image quality was adequate. Contrast extended to the bifurcation. The main bile duct was diffusely dilated, acquired. The largest diameter was 15 mm. To size th e object(s), the biliary tree was swept with an 18 mm balloon starting at the bifurcation. Sludge was swept from the duct. To size the object(s), the biliary tree was swept with a basket starting at the bifurcation. Nothi ng was found. Estimated Blood Loss: Estimated blood loss: none. Post Op Diagnosis: - One occluded with debris stent from the biliary tree was seen in the major papilla. - The entire main bile duct was dilated, acquired. - One stent was removed from the biliary tree. - The biliary tree was swept and sludge was found. - The biliary tree was swept and nothing was found. Recommendation: - Clear liquid diet. - Check liver enzymes (AST, ALT, alkaline phosphatase, bilirubin) in th e morning. - Thank you for allowing me to participate in the care of your patient. Attending Participation: I personally performed the entire procedure. Paras Rosa MD Paras Rosa MD 04/27/2017 3:15:23 PM This report has been signed electronicallyStmicaela Rosa MD Number of Addenda: 0 Note Initiated On: 04/27/2017 2:05 PM [email or web address]
[2017-04-27] MEDS ORDERED: fentaNYL 100 MCG/2 ML INJ IVP PRN (15:20)
[2017-04-27] MEDS ORDERED: NALOXONE HCL 0.4 MG/ML INJ IVP PRN (15:20)
[2017-04-27] MEDS ORDERED: ONDANSETRON 4 MG/2 ML VIAL IVP PRN ×2 (15:20→17:04)
[2017-04-27] MEDS ORDERED: ALBUTEROL 3 ML DEYVIAL IH PRN (15:20)
--- NOTE | 2017-04-27 15:21 | POSTANESTH ---
Post Anesthetic Evaluation Cardiovascular Status: Similar to Pre-Op Cond Respiratory Status: Similar to Pre-op Cond. Level of Consciousness/Mental Status: Mildly Sleepy, Arousable Pain Control: Adequate, Prn Tx Ordered Nausea/Vomiting Control: Adequate, Prn Tx Ordered Complications Possibly Related to Anesthesia: None Noted
--- NOTE | 2017-04-27 15:50 | ASMTCMCOM ---
CM Note CM Note Notes: Pt admitted with jaundice. He had an ERCP and is doing well. Anticipate pt will hve no DC needs. Date Signed: 04/27/2017 03:50 PM Electronically Signed By:Mraicruz Sal LCSW
[2017-04-27] MEDS ORDERED: diphenhydrAMINE 25 MG CAP PO PRN (17:04)
[2017-04-27] MEDS ORDERED: ONDANSETRON DISINTEGRATING 4 MG TAB PO PRN (17:04)
[2017-04-27] MEDS ORDERED: HYDROmorphone HCL/NS 0.5 MG/ML SYR IVP PRN (17:05)
--- NOTE | 2017-04-27 17:06 | SOAPPROG ---
SOAP Progress Note Assessment/Plan: Assessment/Plan: To OR tomorrow for lap vlad Can have regular diet tonight. NPO after midnight Kameron KENNEY Seen c Dr. Anand Objective: Vital Signs Temp Pulse Resp BP Pulse Ox 36.6 C 49 L 16 113/71 100 04/27/17 16:27 04/27/17 16:27 04/27/17 16:27 04/27/17 16:27 04/27/17 16:27 04/26/17 04/27/17 04/28/17 05:59 05:59 05:59 Intake Total 1180 625 Balance 1180 625 PT 13.8 SEC (12.0-15.0) 04/26/17 14:04 INR 1.04 (0.83-1.16) 04/26/17 14:04 ICD10 Worksheet Patient Problems: Problems Problem Status Onset Choledocholithiasis Acute Choledocholithiasis with obstruction Acute Cholelithiasis Acute
--- NOTE | 2017-04-27 19:23 | SOAPPROG ---
SOSOCORRO Progress Note Assessment/Plan: Assessment: choledocolithiasis s/p ERCP Bili still up Will go to OR tomorrow for lap vlad. Risks and benefits including but not limited to stroke, heart attack, , blood clots, infection, bleeding,damage to bowel, common bile duct Questions answered to his satisfaction S: Feeling well O: Abdomen soft and non tender. Midline scar well healed Plan: 04/27/17 19:21 Objective: Vital Signs Temp Pulse Resp BP Pulse Ox 36.7 C 48 L 18 125/71 H 98 04/27/17 18:41 04/27/17 18:41 04/27/17 18:41 04/27/17 18:41 04/27/17 18:41 04/26/17 04/27/17 04/28/17 05:59 05:59 05:59 Intake Total 1180 725 Balance 1180 725 PT 13.8 SEC (12.0-15.0) 04/26/17 14:04 INR 1.04 (0.83-1.16) 04/26/17 14:04 ICD10 Worksheet Patient Problems: Problems Problem Status Onset Choledocholithiasis Acute Choledocholithiasis with obstruction Acute Cholelithiasis Acute
[2017-04-28] MEDS: LR 1,000 ML IV SCH (03:57)
[2017-04-28 05:07] LABS: PLATELET COUNT 122 10^3/uL (150-400)
[2017-04-28] MEDS ORDERED: ceFAZolin 2 GM/SWFI 2 GM/20 ML SYR IVP ONE (07:00)
[2017-04-28] MEDS ORDERED: BUPIVACAINE 0.25% 30 ML SDV ONE (08:47)
[2017-04-28] MEDS ORDERED: ceFAZolin 2 GM/SWFI 20 ML SYR IVP ONE (09:56)
[2017-04-28] MEDS ORDERED: MIDAZOLAM 2 MG/2 ML VIAL ONE (10:08)
[2017-04-28] MEDS ORDERED: fentaNYL 250 MCG/5 ML INJ ONE (10:08)
[2017-04-28] MEDS ORDERED: ROCURONIUM 50 MG/5 ML VIAL ONE (10:09)
[2017-04-28] MEDS ORDERED: METOCLOPRAMIDE 10 MG/2 ML VIAL ONE (10:09)
[2017-04-28] MEDS ORDERED: DEXAMETHASONE 4 MG/ML VIAL ONE (10:09)
[2017-04-28] MEDS ORDERED: PROPOFOL 200 MG/20 ML VIAL ONE (10:09)
--- NOTE | 2017-04-28 10:09 | PDANEPAE ---
ANE Past Medical History - Pulmonary History Hx Oxygen in Use at Home: No Hx Sleep Apnea: No Sleep Apnea Screening Result - Last Documented: Negative - Endocrine History Hx Diabetes: No - Chronic Pain History Chronic Pain: No ANE Review of Systems Review of Systems: ANE Patient History - Allergies Allergies/Adverse Reactions: No Known Allergies Allergy (Unverified 04/26/17 13:13) - Home Medications Home Medications: Cholecalciferol Vit D3 [Vitamin D3 (*)] 1,000 units PO DAILY 04/26/17 [Last Taken Unknown] - NPO status NPO Since - Liquids (Date): 04/27/17 NPO Since - Liquids (Time): 21:30 NPO Since - Solids (Date): 04/27/17 NPO Since - Solids (Time): 21:30 - Smoking Hx Smoking Status: Never smoked ANE Labs/Vital Signs - Labs Result Diagrams: 04/28/17 04:32 04/28/17 04:32 - Vital Signs Blood Pressure: 102/60 Heart Rate: 50 Respiratory Rate: 16 O2 Sat (%): 98 Height: 172.72 cm Weight: 77.111 kg ANE Physical Exam - Airway Neck exam: FROM Mallampati Score: Class 2 Mouth exam: poor dentition - Pulmonary Pulmonary: no respiratory distress - Cardiovascular Cardiovascular: regular rate and rhythym - ASA Status ASA Status: II ANE Anesthesia Plan Anesthesia Plan: general endotracheal anesthesia
[2017-04-28] MEDS ORDERED: LIDOCAINE 2% 100 MG/5 ML SYR ONE (10:10)
--- NOTE | 2017-04-28 11:49 | POSTOPPROG ---
Post Op Note Date of Operation: 04/28/17 Surgeon: Arlet Anand Anesthesiologist: katty Anesthesia: GET(General Endotracheal) Pre-op Diagnosis: choledocolithiasis Post-op Diagnosis: same Indication: 56 w choledocolithiasis Procedure: lap scarlett, lap vlad, lap wedge liver bx Findings: lots of adhesions, inflamed gb thickened, dark liver Inf/Abcess present in the surg proc area at time of surgery?: No EBL: 50-100 Specimen(s): liver bx gb
[2017-04-28] MEDS ORDERED: ALBUTEROL 3 ML DEYVIAL IH PRN (11:55)
[2017-04-28] MEDS ORDERED: ONDANSETRON 4 MG/2 ML VIAL IVP PRN (11:55)
[2017-04-28] MEDS ORDERED: NALOXONE HCL 0.4 MG/ML INJ IVP PRN (11:55)
[2017-04-28] MEDS ORDERED: MEPERIDINE 25 MG/ML SYR IVP PRN (11:55)
[2017-04-28] MEDS ORDERED: fentaNYL 100 MCG/2 ML INJ ONE (11:57)
[2017-04-28] MEDS ORDERED: HYDROmorphONE/DILAUDID 2 MG/ML INJ ONE (11:57)
[2017-04-28] MEDS: fentaNYL 100 MCG/2 ML INJ IVP PRN ×3 (12:07→12:33)
[2017-04-28] MEDS: HYDROmorphONE/DILAUDID 1 MG/ML INJ IVP PRN ×4 (12:07→12:37)
--- NOTE | 2017-04-28 12:08 | GOP ---
[f rep st] OPERATIVE REPORT DATE OF OPERATION: 04/28/2017 SURGEON: Arlet Anand MD ANESTHESIA: General. ANESTHESIOLOGIST: Dr. Nathaniel [place]. PREOPERATIVE DIAGNOSIS: Choledocholithiasis. POSTOPERATIVE DIAGNOSIS: Choledocholithiasis. PROCEDURE PERFORMED: Laparoscopic lysis of adhesions, laparoscopic cholecystectomy, laparoscopic wedge liver biopsy. FINDINGS: Adhesions and very firm gallbladder. His liver was mottled and dark in color. SPECIMENS: Liver biopsy, gallbladder. ESTIMATED BLOOD LOSS: 50 cc. INDICATIONS: The patient is a 56-year-old man who had choledocholithiasis. His bilirubin was not dropping as expected. He had an ERCP again yesterday. Stent removed. Sweeping performed. DESCRIPTION OF PROCEDURE: Patient was brought into the operating room, placed supine on the table, and general anesthesia was administered. His abdomen was prepped and draped in the usual sterile fashion. I infiltrated all sites with 0.25% Marcaine prior to making incisions. Due to his previous midline incision , I made his first incision in his right upper quadrant. I elevated it, and I inserted the Veress needle. It passed the hanging drop test. His abdomen insufflated easily to a pressure of 15 mmHg. I placed a 5 mm trocar with a camera at this port. There were no injuries from Veress needle placement. I explored his abdomen. There were extensive adhesions to the gallbladder tethering it down. His liver was very dark in color and mottled, and he had midline incisions as well. I carefully placed a 10 mm trocar at the subxiphoid area and 2 additional trocars in the right upper quadrant. I performed 30 minutes of lysis of adhesions, which was 50% of the total case time. I was then able to lift the gallbladder cephalad. This was difficult as there was a firm mass at the top of the gallbladder. I exposed the triangle of Calot. There was also inflammation here. I carefully dissected the cystic artery and the cystic duct so that they were the only 2 structures directly entering the gallbladder. The cystic duct was slightly enlarged. This was not an unexpected finding due to his recent stent and ERCP. I singly clipped the cystic artery toward the gallbladder, doubly clipped it distally, and transected it. This appeared to involve a bit of the lymph node of Calot. I placed an additional clip around the cystic artery distally. I then placed a proximal clip on the cystic duct, and I transected it. I had to place an 0 PDS Endoloop to secure the cystic duct. I removed the gallbladder from the gallbladder fossa with electrocautery. I did not enter the gallbladder. It was placed in an EndoCatch bag and retrieved via the 10 mm trocar site. I had to enlarge this to accommodate the large area. Hemostasis was achieved on the liver bed with electrocautery. Hemostasis was achieved on the omentum. I took a wedge biopsy of the liver and sent this for pathology. Hemostasis was achieved on the liver. Suction irrigation performed. Tim was placed. Trocars removed under direct vision. The abdomen allowed to desufflate. The fascia at the 10 mm trocar site was closed with 0 Vicryl. Skin closed with 4-0 Monocryl. Dermabond applied. He was awakened in the operating room, extubated , transferred to PACU in stable condition. /[id number]/MODL MTDD
--- NOTE | 2017-04-28 15:05 | SOAPPROG ---
SOAP Progress Note Assessment/Plan: Assessment: POD # 0 s/p lap JOSEPH, lap vlad, lap liver biopsy for choledocolithiasis Advance to regular diet Likely home in am S: Feeling well, hasn't eaten yet O: Abdomen soft and non tender. incisions cdi Plan: 04/27/17 19:21 04/28/17 15:04 Objective: Vital Signs Temp Pulse Resp BP Pulse Ox 36.7 C 60 16 127/64 H 96 04/28/17 14:52 04/28/17 14:52 04/28/17 14:52 04/28/17 14:52 04/28/17 14:52 Laboratory Results 04/28/17 04:32 04/28/17 04:32 04/27/17 04/28/17 04/29/17 05:59 05:59 05:59 Intake Total 1180 1888 950 Output Total 50 Balance 1180 1888 900 PT 13.8 SEC (12.0-15.0) 04/26/17 14:04 INR 1.04 (0.83-1.16) 04/26/17 14:04 ICD10 Worksheet Patient Problems: Problems Problem Status Onset Choledocholithiasis Acute Choledocholithiasis with obstruction Acute Cholelithiasis Acute
[2017-04-28] MEDS: oxyCODONE IR 5 MG TAB PO PRN ×3 (16:15→23:49)
[2017-04-29 04:54] LABS: PLATELET COUNT 188 10^3/uL (150-400)
[2017-04-29] MEDS: oxyCODONE IR 5 MG TAB PO PRN ×2 (07:28→12:33)
[2017-04-29 08:47] VITALS: RESP 16
[2017-04-29 11:12] VITALS: BP 119/68; PULSE 75; TEMP 98.4; O2SAT 94
[2017-04-29] MEDS ORDERED: IBUPROFEN 600 MG TAB PO PRN (11:24)
[2017-04-29] MEDS ORDERED: ACETAMINOPHEN 325 MG TAB PO PRN (11:25)
--- NOTE | 2017-04-29 11:47 | SOAPPROG ---
SOAP Progress Note Assessment/Plan: Assessment: POD # 1 s/p lap JOSEPH, lap vlad, lap liver biopsy for choledocolithiasis Regular diet Had pain overnight - better now. Possibly dc later in the day S: Had pain overnight that is improved O: Abdomen soft and non tender. incisions cdi Plan: 04/27/17 19:21 04/28/17 15:04 04/29/17 11:47 Objective: Vital Signs Temp Pulse Resp BP Pulse Ox 36.9 C 75 16 119/68 94 04/29/17 11:10 04/29/17 11:10 04/29/17 11:10 04/29/17 11:10 04/29/17 11:10 Laboratory Results 04/29/17 04:41 04/28/17 04:32 04/28/17 04/29/17 04/30/17 05:59 05:59 05:59 Intake Total 1887 2009 Output Total 50 Balance 1888 1960 PT 13.8 SEC (12.0-15.0) 04/26/17 14:04 INR 1.04 (0.83-1.16) 04/26/17 14:04 ICD10 Worksheet Patient Problems: Problems Problem Status Onset Choledocholithiasis Acute Choledocholithiasis with obstruction Acute Cholelithiasis Acute
[2017-04-29] MEDS ORDERED: SENNOSIDES/DOCUSATE SODIUM TAB PO SCH (12:00)
--- NOTE | 2017-04-29 12:09 | ASMTLACE ---
ALISTAIRE Length of stay for Answers: 3 days current admission Acuity / Level of Answers: Yes Care: Did the patient have an inpatient admission? # of Emergency department Answers: 1-2 visits in the last 6 months Score: 7 Date Signed: 04/29/2017 12:09 PM Electronically Signed By:Sarita Macario RN
--- NOTE | 2017-04-29 12:11 | ASMTCMCOM ---
CM Note CM Note Notes: Chart reviewed. Patient has been medically cleared for discharge to home. No needs identified. CM available should needs arise. Date Signed: 04/29/2017 12:10 PM Electronically Signed By:Sarita Macario RN
== END 2017-04-29 13:09 | disposition home or self-care (01) | DRG 410 ==
LOC: F1N 18:13
PROVIDERS: ADMIT Surgery; ATTEND Surgery
PROC: 0FP44DZ Removal of Intraluminal Device from Gallbladder, Percutaneous Endoscopic Approach (ICD-10-PCS; principal; 2017-04-27 13:30)
PROC: 0FT44ZZ Resection of Gallbladder, Percutaneous Endoscopic Approach (ICD-10-PCS; 2017-04-28)
PROC: 0FB00ZX Excision of Liver, Open Approach, Diagnostic (ICD-10-PCS; 2017-04-28)
DX: K80.13 Calculus of gallbladder with acute and chronic cholecystitis with obstruction (principal); Z85.47 Personal history of malignant neoplasm of testis
CPT/HCPCS: J0690; J1100; J1170; J1610; J2001; J2250; J2704; J2765; J3010; Q9961; Q9967